=== PATIENT | male | born 1980 | race Caucasian/White ===

== ENCOUNTER 2016-06-17 10:21 | Inpatient (IN) | payer OTHER ==
[~2016-06-17] VITALS: Ht 182.9 cm; Wt 121.1 kg
[2016-06-17] VITALS (30 sets, daily range): BP systolic 111–148; BP diastolic 51–69; PULSE 60–98; RESP 12–28; Ht 182.9 cm; Wt 121.1 kg
[2016-06-17] MEDS ORDERED: HYDR-902 PO (10:58)
[2016-06-17] MEDS ORDERED: LACTATED RINGER'S 1,000 ML IV* SCH (11:00)
[2016-06-17] MEDS ORDERED: CEFAZOLIN 2 GM/50 ML (PMX) 50 ML IVPB SCH (11:00)
[2016-06-17] MEDS ORDERED: PROPOFOL 20 ML ONE ×2 (11:36→14:22)
[2016-06-17] MEDS ORDERED: FENTAnyl 50 MCG/ML VIAL ONE ×2 (11:36→14:27)
[2016-06-17] MEDS ORDERED: MIDAZOLAM 1 MG/ML 2 ML INJ ONE (11:36)
[2016-06-17] MEDS ORDERED: CEFAZOLIN 1 GM INJ ONE ×2 (11:36→13:44)
[2016-06-17] MEDS ORDERED: SUCCINYLCHOLINE CHLORIDE 100 MG/5 ML SYG IV ONE (11:36)
[2016-06-17] MEDS ORDERED: LIDOCAINE 2% (SDV) 5 ML INJ ONE (11:36)
[2016-06-17] MEDS: D5W-0.45 NACL + KCL 20 MEQ 1,000 ML IV SCH ×2 (13:03→21:15)
--- NOTE | 2016-06-17 13:03 | HPN ---
Date/Time of Note Date/Time of Note DATE: 06/17/16 TIME: 13:03 Interval H&P Admission Note Pt. seen H&P reviewed: No system changes BOBY TRACY PA-C Jun 17, 2016 13:03
[2016-06-17] MEDS ORDERED: NALOXONE (0.4 MG/ML) INJ IV PRN (13:30)
[2016-06-17] MEDS ORDERED: BISACODYL 10 MG SUPP PR PRN (13:30)
[2016-06-17] MEDS ORDERED: ZOLPIDEM 5 MG TAB PO PRN (13:30)
[2016-06-17] MEDS ORDERED: HYDROmorphONE 1 MG/ML SYG IV PRN (13:30)
[2016-06-17] MEDS ORDERED: CEPASTAT LOZENGE MT PRN (13:30)
[2016-06-17] MEDS ORDERED: ACETAMINOPHEN 325 MG TAB PO PRN (13:30)
[2016-06-17] MEDS ORDERED: ONDANSETRON 4 MG INJ IV PRN ×2 (13:30→15:00)
[2016-06-17] MEDS ORDERED: HYDROCODONE/APAP (10/325) TAB PO PRN (13:30)
[2016-06-17] MEDS ORDERED: AL HYDROX/MG HYDROX/SIMETH 30 ML CUP PO PRN (13:30)
[2016-06-17] MEDS ORDERED: SURGIFOAM POWDER 1 GM KIT ONE (13:34)
[2016-06-17] MEDS ORDERED: GELATIN SIZE 100 SPONGE ONE (13:34)
[2016-06-17] MEDS ORDERED: BUPIVACAINE 0.25%/EPI (SDV) 30 ML INJ ONE (13:35)
[2016-06-17] MEDS ORDERED: THROMBIN 5000 UNIT VIAL ONE ×2 (13:35→14:40)
[2016-06-17] MEDS ORDERED: POLYMYXIN/BACITRACIN 1L IRRIG ONE ×2 (13:35→13:56)
[2016-06-17] MEDS ORDERED: POLYMYXIN/BACITRACIN 1L IRRIG IRR ONE (14:22)
[2016-06-17] MEDS ORDERED: THROMBIN 5000 UNIT VIAL TOP ONE (14:22)
[2016-06-17] MEDS ORDERED: ROCURONIUM 50 MG INJ ONE (14:22)
[2016-06-17] MEDS ORDERED: BUPIVACAINE 0.25%/EPI (SDV) 30 ML INJ INJ ONE (14:22)
[2016-06-17] MEDS ORDERED: DEXAMETHASONE 4 MG/ML 1 ML INJ ONE (14:27)
[2016-06-17] MEDS ORDERED: ONDANSETRON 4 MG INJ ONE (14:27)
[2016-06-17] MEDS ORDERED: CA CHLORIDE 10% 10 ML SYRINGE ONE (14:28)
[2016-06-17] MEDS ORDERED: METOCLOPRAMIDE 10 MG INJ ONE (14:28)
[2016-06-17] MEDS ORDERED: HYDROmorphONE 2 MG/ML SYG ONE (14:31)
[2016-06-17] MEDS ORDERED: HYDROmorphONE (0.2 MG/ML) 10ML SYG IV PRN ×2 (15:00)
[2016-06-17] MEDS ORDERED: DIPHENHYDRAMINE 50 MG INJ IV PRN (15:00)
[2016-06-17] MEDS ORDERED: FENTAnyl 50 MCG/ML VIAL IV PRN (15:00)
[2016-06-17] MEDS ORDERED: hydrALAzine 20 MG INJ IV PRN (15:00)
[2016-06-17] MEDS ORDERED: LABETALOL HCL 20MG INJ IV PRN (15:00)
[2016-06-17] MEDS ORDERED: PROCHLORPERAZINE 10 MG INJ IV PRN (15:00)
[2016-06-17] MEDS ORDERED: MEPERIDINE 25 MG INJ IV PRN (15:00)
--- NOTE | 2016-06-17 15:17 | RADRPT ---
PROCEDURE: XR Lumbar Spine one view. CLINICAL INDICATION: Low back pain. Intraoperative. TECHNIQUE: Prone portable cross-table lateral. COMPARISON: No prior studies are available for comparison. FINDINGS: For the purposes of this report, the last apparent true disc level is considered to be L5-S1. Based on this, the posterior needle markers are present at the L4 spinous process level and S1 spinous pr ocess level. IMPRESSION: 1. Intraoperative imaging as described above. RPTAT: QQ .Dustin Bartlett MD, Date Time Electronically viewed and signed by .Dustin Bartlett MD, on 06/17/2016 15:17 .R/
--- NOTE | 2016-06-17 15:18 | RADRPT ---
PROCEDURE: XR Lumbar Spine one view. CLINICAL INDICATION: Low back pain. Intraoperative. TECHNIQUE: Prone portable cross-table lateral. COMPARISON: Prior study done earlier the same day. FINDINGS: For the purposes of this report, the last apparent true disc level is considered to be L5-S1. Based on this, the posterior surgical instrument is present overlying the L4-5 level. IMPRESSION: 1. Intraoperative imaging as described above. RPTAT: QQ .Dustin Bartlett MD, MD Date Time Electronically viewed and signed by .Dustin Bartlett MD, on 06/17/2016 15:17 .R/
[2016-06-17] MEDS ORDERED: GLYCOPYRROLATE 1 MG INJ ONE (15:29)
[2016-06-17] MEDS ORDERED: NEOSTIGMINE 3 MG/3 ML SYRINGE ONE (15:29)
[2016-06-17] MEDS: HYDROmorphONE 0.2 MG/ML PCA IV SCH ×2 (16:03→22:29)
[2016-06-17] MEDS: CEFAZOLIN 1 GM/50 ML (PMX) 50 ML IVPB SCH ×2 (16:11→21:30)
--- NOTE | 2016-06-17 16:31 | OPR ---
DATE OF OPERATION: 06/17/2016 PREOPERATIVE DIAGNOSES: Right L4-L5 disk herniation with radiculopathy. POSTOPERATIVE DIAGNOSES: Right L4-L5 disk herniation with radiculopathy. OPERATION PERFORMED: 1. Right L4-L5 lumbar microdiskectomy. 2. Lateral localizing film x2. 3. Intraoperative neuromonitoring (1.5 hours). 4. Use of operative microscope. 5. Epidural injection via catheter. PRIMARY SURGEON: Nayan Montelongo MD NURSE SANE: JOHN LISA. NEED FOR PAINT MIXER MACHINE: During this spinal surgical procedure, my staffing assistant was used to retrac t and protect the spinal nerves and dural sac. My staffing assistant also employed the suction catheters to evacuate blood from the surgical field to improve visualization of the neural structures. The jacqueline tant was medically necessary to facilitate the completion of the surgery in a safe and expeditious m roni. [facility] regulations, as well as hospital bylaws, preclude the use of non-license d health care personnel, such as operating room technicians, to perform these functions. FINDINGS: Neuromonitoring at the start of the case revealed bilateral L4 amplitude down 10%, left L 5 amplitude down 40%, right L5 amplitude down 60%, left S1 amplitude down 40%, right S1 amplitude do wn 50%. At the end of the case, nerve signals returned to normal. The patient had large disk extru shell at L4-L5. ESTIMATED BLOOD LOSS: 20 mL. DRAINS: None. SPECIMENS: L4-5 disk was sent to pathology. COMPLICATIONS OF PROCEDURES: None. ANESTHESIOLOGIST: ZAIRE STEPHENS MD. TYPE OF ANESTHESIA: General. INDICATIONS FOR PROCEDURE: This is a 36-year-old gentleman with lumbosacral radiculopathy with larg e disk extrusion at L4-L5. He has failed nonoperative measures, therefore, I recommended proceeding with the above-mentioned surgery. Preoperatively, we discussed the risks, benefits and alternative s. He understood and wished to proceed. DESCRIPTION OF PROCEDURE IN DETAIL: The patient was identified in the preoperative holding area, [facility], taken to the operating room. He was successfully placed under general anesthe sulaiman. Neuromonitoring leads were placed, sequential compressive devices were applied. Neuromonitori ng was utilized during the procedure for 1.5 hours to include SSEP, MEP and EMG. This was performed by [employer]. Start time was 2:00 p.m., closure time was 3:30 p.m. The patient was placed i n downward turned prone position over Alexandru frame. All bony prominences were well padded. The zaid k was then prepped and draped in the usual sterile fashion. Spinal needles were placed. Lateral lo calizing films obtained to confirm the correct levels. Once this was confirmed, I injected the para spinal musculature with 0.25% Marcaine with epinephrine. Incision was then made over the L4-5 level . Incision was taken down to dorsal fascia, which was incised with Bovie cautery. I then subperios teally dissected the right L4 and L5 lamina. Becca retractor was placed. Kerrison was placed unde r what was felt to be the L4 lamina and repeat lateral films obtained to confirm the correct levels. Once this was confirmed, microscope was brought in. The patient had a BMI of 36 and extended inst ruments had to be utilized due to his morbid obesity. I then performed a right-sided hemilaminotomy . Ligamentum flavum was sharply dissected. A medial facetectomy and foraminotomy were performed. The L5 nerve root was identified and retracted. Annulotomy was made followed by a diskectomy. I re ached across the other side and removed the central fragments as well. Once I had completed the dis kectomy, all nerve signals returned to normal. I felt the floor of the canal and there was no longe r any extrusions. I took a portion of the superior aspect of L5 to further decompress the area. Gi beata the improvement in the signals, I elected not to perform a left-sided decompression. Disk space was then irrigated. The wound was then irrigated. A Valsalva maneuver was performed and there was no leak of CSF. Hemostasis was achieved with Surgifoam and bipolar cautery. I then passed an epid ural catheter through which I injected 100 mcg of fentanyl. Catheter was then pulled. Anesthesiolo chasity racquel peripheral blood, which was spun down using the Jion[employer] App device. I took the platelet-poor plasma and mixed with thrombin and injected this over the dura for hemostatic purposes. The retrac tors were removed. I then closed the deep fascia with #1 Vicryl stitch. I closed subcutaneous tiss ue with 2-0 Vicryl stitch. A 4-0 Monocryl was then performed. Dermabond was then applied. The pat ient was then awakened from anesthesia and taken to recovery room in stable condition. Lap, sponge, and instrument counts were correct x2. There were no apparent complications during the procedure. The patient will be admitted [facility] for routine postoperative care to include pain c ontrol, neurovascular checks, antibiotics and physical therapy. Dictated By: NAYAN NELSON/RITA Conf#: [id number] DID#: [id number]
[2016-06-17] MEDS: DIPHENHYDRAMINE 50 MG INJ IV PRN (19:16)
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
[2016-06-17] MEDS: DOCUSATE SODIUM 100 MG CAP PO SCH (21:15)
[2016-06-18 00:05] VITALS: BP 116/58; PULSE 71; RESP 18
[2016-06-18] MEDS: CYCLOBENZAPRINE 10 MG TAB PO PRN ×2 (02:23→09:22)
[2016-06-18] MEDS: DIPHENHYDRAMINE 50 MG INJ IV PRN ×2 (03:38→09:22)
[2016-06-18] MEDS: CEFAZOLIN 1 GM/50 ML (PMX) 50 ML IVPB SCH (03:48)
[2016-06-18] MEDS: HYDROmorphONE 0.2 MG/ML PCA IV SCH (04:26)
[2016-06-18 05:02] LABS: ADD SCAN DIFF NO
[2016-06-18 05:17] LABS: BASOPHILS % 0.1 % (0.0-2.0); EOSINOPHILS % 0.1 % (0.0-7.0); HEMATOCRIT 41.7 % (42.0-52.0); HEMOGLOBIN 13.7 g/dl (14.0-18.0); LYMPHOCYTES # 1.3 10^3/ul (0.8-2.9); LYMPHOCYTES % 8.9 % (15.0-51.0); MEAN CORPUSCULAR HEMOGLOBIN 27.3 pg (29.0-33.0); MEAN CORPUSCULAR HGB CONC 32.9 g/dl (32.0-37.0); MEAN CORPUSCULAR VOLUME 83.2 fl (82.0-101.0); MEAN PLATELET VOLUME 11.8 fl (7.4-10.4); MONOCYTE # 1.2 10^3/ul (0.3-0.9); MONOCYTES % 8.4 % (0.0-11.0); NEUTROPHIL # 12.2 10^3/ul (1.6-7.5); NEUTROPHILS % 82.2 % (39.0-77.0); PLATELET COUNT 211 10^3/UL (140-415); RED BLOOD COUNT 5.01 10^6/ul (4.70-6.10); RED CELL DISTRIBUTION WIDTH 14.3 % (11.5-14.5); WHITE BLOOD COUNT 14.8 10^3/ul (4.8-10.8)
[2016-06-18 05:26] LABS: POTASSIUM 4.2 mmol/L (3.5-5.1)
[2016-06-18 05:29] LABS: CREATININE 0.96 mg/dl (0.61-1.24)
[2016-06-18 05:30] VITALS: BP 114/63; PULSE 85; RESP 17
[2016-06-18 05:30] LABS: CALCIUM 8.9 mg/dl (8.4-10.2)
[2016-06-18 07:46] VITALS: BP 118/58; RESP 18
[2016-06-18 07:50] VITALS: BP 112/55; RESP 18
[2016-06-18] MEDS: D5W-0.45 NACL + KCL 20 MEQ 1,000 ML IV SCH (09:03)
[2016-06-18] MEDS: HYDROCODONE/APAP (10/325) TAB PO PRN ×2 (09:22→14:15)
[2016-06-18] MEDS: DOCUSATE SODIUM 100 MG CAP PO SCH (09:23)
--- NOTE | 2016-06-18 10:48 | DS ---
DATE OF ADMISSION: 06/17/2016 DATE OF DISCHARGE: 06/18/2016 ADMITTING DIAGNOSIS: Disk herniation. DISCHARGE DIAGNOSIS: Disk herniation. PROCEDURE: The patient was taken to the operating room on 06/17/2016 and underwent lumbar microdisk ectomy. HOSPITAL COURSE: The patient was [facility] after undergoing the above procedure. His postoperative course was uncomplicated. By postop day 1 he was deemed stable for discharge wit h followup arranged with the undersigned. Dictated By: BENNY NELSON/RITA Conf#: [id number] DID#: [id number]
--- NOTE | 2016-06-18 13:24 | CONS ---
Date/Time of Note Date/Time of Note DATE: 06/18/16 TIME: 13:22 Assessment/Plan Assessment/Plan Chief Complaint/Hosp Course 1. he is 1 day post op a lumbar spine surgery . He is doing well . He can be discharged to home today . Problems: Consultation Date/Type/Reason Admit Date/Time Jun 17, 2016 at 10:21 Initial Consult Date 24 HR Interval Summary Free Text/Dictation He is 1 day post op a lumbar spine surgery . Constitutional: improved, no complaints Exam/Review of Systems Vital Signs Vitals Vital Signs Date Time Temp Pulse Resp B/P Pulse Ox O2 Delivery O2 Flow Rate FiO2 06/18/16 10:16 20 06/18/16 07:50 98.6 78 112/55 96 06/18/16 05:30 Nasal Cannula 2.0 Intake and Output 06/17/16 06/17/16 06/18/16 15:00 23:00 07:00 Intake Total 800 ml 1500 ml Output Total 20 ml 5000 ml Balance 780 ml -3500 ml Exam Constitutional: alert, oriented, well developed Respiratory: clear to auscultation, normal air movement Cardiovascular: nl pulses, regular rate and rhythm Gastrointestinal: soft Musculoskeletal: nl extremities to inspection Results Result Diagram: 06/18/16 0410 06/18/16 0410 Results 24 hrs Laboratory Tests Test 06/18/16 04:10 White Blood Count 14.8 H Red Blood Count 5.01 Hemoglobin 13.7 L Hematocrit 41.7 L Mean Corpuscular Volume 83.2 Mean Corpuscular Hemoglobin 27.3 L Mean Corpuscular Hemoglobin Concent 32.9 Red Cell Distribution Width 14.3 Platelet Count 211 Mean Platelet Volume 11.8 H Neutrophils % 82.2 H Lymphocytes % 8.9 L Monocytes % 8.4 Eosinophils % 0.1 Basophils % 0.1 Nucleated Red Blood Cells % 0.0 Neutrophils # 12.2 H Lymphocytes # 1.3 Monocytes # 1.2 H Eosinophils # 0.0 Basophils # 0.0 Nucleated Red Blood Cells # 0.0 Sodium Level 138 Potassium Level 4.2 Chloride Level 102 Carbon Dioxide Level 25 Anion Gap 15 Blood Urea Nitrogen 12 Creatinine 0.96 Glucose Level 104 Calcium Level 8.9 Magnesium Level 2.0 Medications Medications Current Medications Lactated Ringer's 1,000 ml @ 20 mls/hr Q24H IV* ; Start 06/17/16 at 11:00; Stop 06/19/16 at 12:59 Potassium Chloride/Dextrose/ Sod Cl (D5-1/2ns + KCl 20 Meq) 1,000 ml @ 100 mls/ hr Q10H IV Last administered on 06/17/16 21:15; Admin Dose 100 MLS/HR; Start 06/17/16 at 13:03 Acetaminophen/ Hydrocodone Bitart ([place] (10/325)) 1 tab Q4H PRN PO PAIN LEVEL 1-5; Start 06/17/16 at 13:30 Acetaminophen/ Hydrocodone Bitart ([place] (10/325)) 2 tab Q4H PRN PO PAIN LEVEL 6-10 Last administered on 06/18/16 09:22; Admin Dose 2 TAB; Start 06/17/16 at 13:30 Hydromorphone HCl (Dilaudid) 0.2 mg Q1H PRN IV BREAKTHROUGH PAIN; Start at 13:30 Ondansetron HCl (Zofran Inj) 4 mg Q6H PRN IV NAUSEA AND/OR VOMITING; Start at 13:30 Bisacodyl (Dulcolax Supp) 10 mg DAILY PRN [place] CONSTIPATION; Start 06/17/16 at 13 :30 Docusate Sodium (Colace) 100 mg BID PO Last administered on 06/18/16 09:23; Admin Dose 100 MG; Start 06/17/16 at 21:00 Al Hydrox/Mg Hydrox/Simethicone (Mag-Al Plus) 15 ml Q6H PRN PO CONSTIPATION/ DYSPEPSIA; Start 06/17/16 at 13:30 Acetaminophen (Tylenol Tab) 650 mg Q4H PRN PO KEITA OR TEMP GREATER THAN 101.3F; Start 06/17/16 at 13:30 Cyclobenzaprine HCl (Flexeril) 10 mg TID PRN PO MUSCLE SPASMS Last administered on 06/18/16 09:22; Admin Dose 10 MG; Start 06/17/16 at 13:30 Phenol (Cepastat Lozenge) 1 lozenge PRN PRN MT SORE THROAT; Start 06/17/16 at 13:30 Diphenhydramine HCl (Benadryl) 25 mg Q6H PRN IV ITCHING Last administered on 09:22; Admin Dose 25 MG; Start 06/17/16 at 13:30 Naloxone HCl (Narcan) 0.2 mg Q2M PRN IV RR 8 BREATHS/MIN OR LESS; Start at 13:30 Hydromorphone HCl (Dilaudid PROGRAM COUNSELOR) PROGRAM COUNSELOR to be started in PACU Q4PCA IV Last administered on 06/18/16t 04:26; Admin Dose 6 MG; Start 06/17/16 at 13:30 Miscellaneous Information 1. Hold PROGRAM COUNSELOR at 1,000... PROGRAM COUNSELOR IV ; Start 06/17/16 at 13: 30 JOHN NEWSOME MD Jun 18, 2016 13:24
== END 2016-06-18 15:45 | disposition home or self-care (01) | DRG 520 ==
LOC: REC 10:21 → MS1 20:00
PROVIDERS: ADMIT Specialist; ATTEND Specialist
PROC: 0SB20ZZ Excision of Lumbar Vertebral Disc, Open Approach (ICD-10-PCS; principal; 2016-06-17 13:00)
DX: M51.16 Intervertebral disc disorders with radiculopathy, lumbar region (principal)
CPT/HCPCS: 72020; 80048; 83735; 85025; 86999; 97116; 97163; 97530; J0330; J0690; J1100; J1170; J1200; J2175; J2250; J2405; J2710; J2765; J3010; J3480; J7120

== ENCOUNTER 2017-02-09 12:46 | Inpatient (IN) | payer BC, OTHER ==
[2017-02-09] VITALS (25 sets, daily range): BP systolic 104–140; BP diastolic 56–81; PULSE 58–84; RESP 9–25
[~2017-02-09] VITALS: Ht 182.9 cm; Wt 126.5 kg
[~2017-02-09 12:46] MED LIST: GLYCOPYRROLATE 0.4 MG INJ ONE; HYDR-902 PO; NEOSTIGMINE 3 MG/3 ML SYRINGE ONE
[2017-02-09] MEDS ORDERED: LACTATED RINGER'S 1,000 ML IV* ONE (13:30)
[2017-02-09] MEDS ORDERED: CEFAZOLIN 2 GM/50 ML (PMX) 50 ML IVPB ONE (13:30)
--- NOTE | 2017-02-09 15:27 | HPN ---
Date/Time of Note Date/Time of Note DATE: 02/09/17 TIME: 15:26 Interval H&P Admission Note Pt. seen H&P reviewed: No system changes BENNY TRIVEDI MD Feb 09, 2017 15:26
[2017-02-09] MEDS ORDERED: CEPASTAT LOZENGE MT PRN (15:30)
[2017-02-09] MEDS ORDERED: DIPHENHYDRAMINE 25 MG CAP PO PRN (15:30)
[2017-02-09] MEDS ORDERED: ACETAMINOPHEN 325 MG TAB PO PRN (15:30)
[2017-02-09] MEDS ORDERED: ONDANSETRON 4 MG INJ IV PRN ×2 (15:30→18:30)
[2017-02-09] MEDS ORDERED: BISACODYL 10 MG SUPP PR PRN (15:30)
[2017-02-09] MEDS ORDERED: ZOLPIDEM 5 MG TAB PO PRN (15:30)
[2017-02-09] MEDS ORDERED: AL HYDROX/MG HYDROX/SIMETH 30 ML CUP PO PRN (15:30)
[2017-02-09] MEDS ORDERED: NALOXONE (0.4 MG/ML) INJ IV PRN (15:30)
[2017-02-09] MEDS ORDERED: POLYMYXIN/BACITRACIN 1L IRRIG ONE (15:44)
[2017-02-09] MEDS ORDERED: BUPIVACAINE 0.5%/EPI (SDV) 30 ML INJ ONE (15:44)
[2017-02-09] MEDS ORDERED: BUPIVACAINE 0.25% (MPF) 30 ML INJ ONE (15:44)
[2017-02-09] MEDS ORDERED: THROMBIN 5000 UNIT VIAL ONE (15:44)
[2017-02-09] MEDS ORDERED: SODIUM CL BACTERIOSTATIC 30 ML INJ ONE (15:44)
[2017-02-09] MEDS ORDERED: GELATIN SIZE 100 SPONGE ONE (15:44)
[2017-02-09] MEDS ORDERED: CEFAZOLIN 1 GM INJ ONE (16:00)
[2017-02-09] MEDS ORDERED: SUCCINYLCHOLINE CHLORIDE 100 MG/5 ML SYG IV ONE (16:02)
[2017-02-09] MEDS ORDERED: PROPOFOL 20 ML ONE ×2 (16:02→16:24)
[2017-02-09] MEDS ORDERED: MIDAZOLAM 1 MG/ML 2 ML INJ ONE ×2 (16:02→16:58)
[2017-02-09] MEDS ORDERED: LIDOCAINE 2% (SDV) 5 ML INJ ONE (16:02)
[2017-02-09] MEDS ORDERED: ROCURONIUM 50 MG INJ ONE (16:02)
[2017-02-09] MEDS ORDERED: FAMOTIDINE 20 MG INJ ONE (16:25)
[2017-02-09] MEDS ORDERED: METOCLOPRAMIDE 10 MG INJ ONE (16:25)
[2017-02-09] MEDS ORDERED: DEXAMETHASONE 4 MG/ML 1 ML INJ ONE (16:25)
[2017-02-09] MEDS ORDERED: ONDANSETRON 4 MG INJ ONE (16:25)
[2017-02-09] MEDS ORDERED: HYDROmorphONE 2 MG/ML SYG ONE (17:00)
[2017-02-09] MEDS ORDERED: CEFAZOLIN 1 GM/50 ML (PMX) 50 ML IVPB SCH (17:00)
[2017-02-09] MEDS ORDERED: DIPHENHYDRAMINE 50 MG INJ ONE (17:42)
--- NOTE | 2017-02-09 17:59 | SIPON ---
Date/Time of Note Date/Time of Note DATE: 02/09/17 TIME: 17:59 Operative Report Preoperative Diagnosis recurrent r L4-5 HNP Postoperative Diagnosis recurrent r L4-5 HNP Operation/Procedure Performed revision right L4-5 discectomy Surgeon see signature line legal assistant Fco Anesthesia: general Estimated blood loss: 10 - 50 ml's Transfusion Required none Specimen disk Grafts/Implants none Complications none BENNY TRIVEDI MD Feb 09, 2017 17:59
[2017-02-09] MEDS ORDERED: PROCHLORPERAZINE 10 MG INJ IV PRN (18:30)
[2017-02-09] MEDS ORDERED: HYDROmorphONE (0.2 MG/ML) 10ML SYG IV PRN ×2 (18:30)
[2017-02-09] MEDS ORDERED: DIPHENHYDRAMINE 50 MG INJ IV PRN (18:30)
[2017-02-09] MEDS ORDERED: MEPERIDINE 25 MG INJ IV PRN (18:30)
[2017-02-09] MEDS ORDERED: FENTAnyl 50 MCG/ML VIAL IV PRN ×2 (18:30)
[2017-02-09] MEDS: FENTAnyl 50 MCG/ML VIAL IV PRN ×2 (18:36→18:50)
[2017-02-09] MEDS: HYDROmorphONE (0.2 MG/ML) 10ML SYG IV PRN ×2 (19:05→19:57)
[2017-02-09] MEDS: HYDROmorphONE 0.2 MG/ML PCA IV SCH (19:11)
[2017-02-09] MEDS: DIPHENHYDRAMINE 50 MG INJ IV PRN (19:22)
[2017-02-09] MEDS: 1/2 NS + KCL 20 MEQ 1,000 ML IV SCH (21:21)
[2017-02-09] MEDS: DOCUSATE SODIUM 100 MG CAP PO SCH (21:21)
--- NOTE | 2017-02-09 21:46 | OPR ---
DATE OF OPERATION: 02/09/2017 PREOPERATIVE DIAGNOSIS: Recurrent right L4-L5 disk herniation with radiculopathy. POSTOPERATIVE DIAGNOSIS: Recurrent right L4-L5 disk herniation with radiculopathy. PROCEDURES: 1. Revision right L4-L5 lumbar microdiskectomy. 2. Use of operative microscope. 3. Lateral localizing film x2. 4. Intraoperative neuromonitoring (1 hour and 15 minutes). PRIMARY SURGEON: Nayan Montelongo MD BIOINFORMATICS COMPUTER SCIENTIST: Marin Eagle MD NEED FOR SHOPPER INSIGHTS MANAGER: During this spinal surgical procedure, my library clerical assistant was used to retrac t and protect the spinal nerves and dural sac. My library clerical assistant also employed the suction catheters to evacuate blood from the surgical field to improve visualization of the neural structures. The jacqueline tant was medically necessary to facilitate the completion of the surgery in a safe and expeditious m roni. [facility] [place] regulations, as well as hospital bylaws, preclude the use of non-license d health care personnel, such as operating room technicians, to perform these functions. FINDINGS: Neuromonitoring at the start of the case revealed right L4 amplitude down 30%, right L5 a mplitude down 40%. At the end of the case, nerve signals returned to normal. The patient had a rec urrent disk herniation at L4-L5. ESTIMATED BLOOD LOSS: Less than 30 mL. DRAINS: None. SPECIMENS: L4-L5 disk. COMPLICATIONS OF PROCEDURE: None. ANESTHESIOLOGIST: Dr. Montoya. TYPE OF ANESTHESIA: General. INDICATIONS FOR PROCEDURE: This is a 36-year-old gentleman with right lumbosacral radiculopathy in the setting of a disk extrusion. He failed nonoperative measures. Therefore, I recommended proceed ing with the above-mentioned surgery. Preoperatively, I discussed the risks, benefits and alternati ves. He understood and wished to proceed. DESCRIPTION OF PROCEDURE IN DETAIL: The patient was identified in the preoperative holding area, [facility], taken to the operating room where he was successfully placed under general ane sthesia. Neuromonitoring leads were placed. Sequential compressive devices were applied. Neuromon itoring was utilized during the procedure for 1 hour and 15 minutes to include SSEP, MEP and EMG. T his was performed by [employer]. Start time was 4:30 p.m. Closure time was 5:45 p.m. The pa tient was placed on the operative table in prone position over a Alexandru frame. All bony prominences were well padded. The back was then prepped and draped in the usual sterile fashion. Spinal needl es were placed, and lateral localizing film was obtained to confirm the correct levels. Once this w as confirmed, I injected the skin, subcutaneous tissue and paraspinal musculature with 0.5% Marcaine and epinephrine. I utilized the patient's previous incision. Incision was taken down to the dorsa l fascia which was incised with Bovie cautery. I then dissected out laterally to the facet joint wh ere I placed a Becca retractor. Scar tissue was encountered through the field, but I was able to i dentify facet joint. I placed a curette at the level and took a repeat lateral film to confirm the correct levels. Once this was confirmed, microscope was brought in and revision decompression was p erformed at the L4-L5 level with a revision facetectomy, partially. My library clerical assistant then retracted shawn ral elements medially. I identified the disk space. I made a small annulotomy and through this, I was able to reach medially and remove 2 large disk fragments. I then explored the disk space and re moved multiple free fragments. Once this was done, I irrigated the disk space and irrigated the wou nd, and at this point, the revision microdiskectomy was completed. Valsalva maneuver was performed, and there was no leak of CSF. Hemostasis was achieved with Gelfoam, thrombin and bipolar cautery. Retractors were then removed, and I closed the deep fascia with a #1 Vicryl stitch. I closed subcu taneous tissue with a 2-0 Vicryl stitch. A 4-0 Monocryl closure was then performed. Microscope was taken off the field. Dermabond and sterile dressings were then applied. The patient was then awak ened from anesthesia and taken to the recovery room in stable condition. Lap, sponge and instrument counts were correct x2. There were no apparent complications during the procedure. The patient will be admitted to the [facility] for routine postoperative care to include pain c ontrol, neurovascular checks, antibiotics and physical therapy. Dictated By: NAYAN NELSON/RITA Conf#: [id number] DID#: [id number] CC: NAYAN MONTELONGO MD;*End*
--- NOTE | 2017-02-09 23:41 | RADRPT ---
PROCEDURE: Intraoperative XR. CLINICAL INDICATION: Intraoperative radiograph during lumbar spine surgery. TECHNIQUE: Spot intraoperative lateral lumbar x-ray image was provided. The images were reviewed on a high-resolution PACS workstation. COMPARISON: None available FINDINGS: Spot intraoperative lateral lumbar view were provided during lumbar spine surgery. The images demon strate metallic probes at the level of L4 and L5. IMPRESSION: 1. Spot intraoperative lateral lumbar view during lumbar spine surgery were provided. 2. Please see operative report of the same day for further information. RPTAT: HGAS .Pranav Dasilva MD, MD Date Time Electronically viewed and signed by .Pranav Dasilva MD, on 02/09/2017 23:40 .S/
--- NOTE | 2017-02-09 23:41 | RADRPT ---
PROCEDURE: Intraoperative XR. CLINICAL INDICATION: Intraoperative radiograph during lumbar spine surgery. TECHNIQUE: Spot intraoperative lateral lumbar x-ray image was provided. The images were reviewed on a high-resolution PACS workstation. COMPARISON: None available FINDINGS: Spot intraoperative lateral lumbar view were provided during lumbar spine surgery. The images demon strate metallic instrumentation at the level of L4-5. IMPRESSION: 1. Spot intraoperative lateral lumbar view during lumbar spine surgery were provided. 2. Please see operative report of the same day for further information. RPTAT: HGAS .Pranav Dasilva MD, MD Date Time Electronically viewed and signed by .Pranav Dasilva MD, on 02/09/2017 23:41 .S/
[2017-02-10] MEDS: CEFAZOLIN 1 GM/50 ML (PMX) 50 ML IVPB SCH ×3 (00:12→16:22)
[2017-02-10 02:26] VITALS: BP 130/72; RESP 18
[2017-02-10] MEDS: HYDROmorphONE 0.5 MG/0.5 ML SYG IV PRN ×5 (02:53→17:00)
[2017-02-10] MEDS: HYDROmorphONE 0.2 MG/ML PCA IV SCH (02:57)
[2017-02-10] MEDS: DIPHENHYDRAMINE 50 MG INJ IV PRN (04:45)
[2017-02-10 05:23] LABS: BASOPHILS % 0.1 % (0.0-2.0); HEMATOCRIT 39.9 % (42.0-52.0); HEMOGLOBIN 13.4 g/dl (14.0-18.0); LYMPHOCYTES # 0.9 10^3/ul (0.8-2.9); LYMPHOCYTES % 6.6 % (15.0-51.0); MEAN CORPUSCULAR HGB CONC 33.6 g/dl (32.0-37.0); MEAN CORPUSCULAR VOLUME 86.4 fl (82.0-101.0); MEAN PLATELET VOLUME 11.6 fl (7.4-10.4); MONOCYTE # 0.8 10^3/ul (0.3-0.9); MONOCYTES % 5.8 % (0.0-11.0); NEUTROPHIL # 11.7 10^3/ul (1.6-7.5); PLATELET COUNT 200 10^3/UL (140-415); RED BLOOD COUNT 4.62 10^6/ul (4.70-6.10); RED CELL DISTRIBUTION WIDTH 13.2 % (11.5-14.5); WHITE BLOOD COUNT 13.5 10^3/ul (4.8-10.8)
[2017-02-10] MEDS: 1/2 NS + KCL 20 MEQ 1,000 ML IV SCH ×2 (05:27→15:27)
[2017-02-10 05:53] LABS: CALCIUM 8.7 mg/dl (8.4-10.2); CREATININE 1.04 mg/dl (0.61-1.24); MAGNESIUM 1.8 mg/dl (1.7-2.5); POTASSIUM 4.4 mmol/L (3.5-5.1)
[2017-02-10] MEDS ORDERED: PANTOPRAZOLE 40 MG INJ IV SCH (06:00)
--- NOTE | 2017-02-10 07:08 | DS ---
Date/Time of Note Date/Time of Note DATE: 02/10/17 TIME: 07:07 Discharge Summary Admission/Discharge Info Admit Date/Time Feb 09, 2017 at 12:46 Discharge Date/Time February 10 Discharge Diagnosis Status post recurrent microdiscectomy Patient Condition: Good Procedures Revision microdiscectomy Hx of Present Illness Back and right leg pain Hospital Course The patient was [facility] after undergoing the above procedure. His postoperative course was uncomplicated. By postoperative day 1 he was deemed stable for discharge with follow-up arranged with the undersigned Home Meds Discontinued Reported Medications Hydrocodone/Acetaminophen ([place] 10-325 Tablet) 1 Each Tablet, 1 EACH PO Q4 Y for PAIN, TAB 06/17/16 Primary Care Provider Care Physician No Primary Pending Labs Laboratory Tests Test 02/10/17 04:35 White Blood Count 13.510^3/ul (4.8-10.8) Red Blood Count 4.6210^6/ul (4.70-6.10) Hemoglobin 13.4g/dl (14.0-18.0) Hematocrit 39.9% (42.0-52.0) Mean Corpuscular Volume 86.4fl (82.0-101.0) Mean Corpuscular Hemoglobin 29.0pg (29.0-33.0) Mean Corpuscular Hemoglobin Concent 33.6g/dl (32.0-37.0) Red Cell Distribution Width 13.2% (11.5-14.5) Platelet Count 73476^3/UL (140-415) Mean Platelet Volume 11.6fl (7.4-10.4) Neutrophils % 87.0% (39.0-77.0) Lymphocytes % 6.6% (15.0-51.0) Monocytes % 5.8% (0.0-11.0) Eosinophils % 0.0% (0.0-7.0) Basophils % 0.1% (0.0-2.0) Nucleated Red Blood Cells % 0.0/100WBC (0.0-0.0) Neutrophils # 11.710^3/ul (1.6-7.5) Lymphocytes # 0.910^3/ul (0.8-2.9) Monocytes # 0.810^3/ul (0.3-0.9) Eosinophils # 0.010^3/ul (0.0-0.5) Basophils # 0.010^3/ul (0.0-0.1) Nucleated Red Blood Cells # 0.010^3/ul (0.0-0.0) Sodium Level 140mmol/L (135-144) Potassium Level 4.4mmol/L (3.5-5.1) Chloride Level 103mmol/L (97-110) Carbon Dioxide Level 28mmol/L (21-31) Anion Gap 13 (8-16) Blood Urea Nitrogen 16mg/dl (7-20) Creatinine 1.04mg/dl (0.61-1.24) Glucose Level 117mg/dl (70-220) Calcium Level 8.7mg/dl (8.4-10.2) Magnesium Level 1.8mg/dl (1.7-2.5) BENNY TRIVEDI MD Feb 10, 2017 07:08
[2017-02-10] MEDS: CYCLOBENZAPRINE 10 MG TAB PO PRN ×3 (07:58→17:36)
[2017-02-10] MEDS: DOCUSATE SODIUM 100 MG CAP PO SCH (07:58)
[2017-02-10 08:32] VITALS: BP 112/59; RESP 20
[2017-02-10] MEDS ORDERED: OXYCODONE/ACETAMINOPHEN (10/325) TAB PO SCH (09:30)
[2017-02-10] MEDS ORDERED: OXYCODONE/ACETAMINOPHEN (10/325) TAB PO PRN (10:00)
[2017-02-10] MEDS: OXYCODONE/ACETAMINOPHEN (10/325) TAB PO PRN ×2 (13:49→17:36)
[2017-02-10 15:37] VITALS: BP 116/51; RESP 19
[2017-02-11] MEDS ORDERED: PANTOPRAZOLE (EC) 40 MG TAB PO SCH (06:00)
== END 2017-02-10 18:10 | disposition home or self-care (01) | DRG 520 ==
LOC: REC 12:46 → EDSTATUS 15:30 → MS1 20:00
PROVIDERS: ADMIT Specialist; ATTEND Specialist
PROC: 01NB0ZZ Release Lumbar Nerve, Open Approach (ICD-10-PCS; 2017-02-09)
PROC: 4A11X4G Monitoring of Peripheral Nervous Electrical Activity, Intraoperative, External Approach (ICD-10-PCS; 2017-02-09)
PROC: 0SB20ZZ Excision of Lumbar Vertebral Disc, Open Approach (ICD-10-PCS; principal; 2017-02-09 15:30)
DX: M51.16 Intervertebral disc disorders with radiculopathy, lumbar region (principal); E66.9 Obesity, unspecified; Z68.37 Body mass index [BMI] 37.0-37.9, adult
CPT/HCPCS: 72020; 80048; 83735; 85025; 86999; 97116; 97162; 97530; C9113; J0690; J1100; J1170; J1200; J2250; J2405; J2710; J2765; J3010; J3480; J7120